=== PATIENT | male | born 1995 | race Caucasian/White ===

== ENCOUNTER 2024-02-16 10:47 | Emergency (ER) | payer OTHER, SELFPAY ==
[2024-02-16 11:05] VITALS: BP 138/74
--- NOTE | 2024-02-16 11:40 | ED.GENMED ---
History of Present Illness
General
Chief Complaint: Skin Surface Trauma
Time Seen by Provider: 02/16/24 11:19
History of Present Illness
History of Present Illness:
29-year-old male presents for evaluation of a minor laceration to left index fingertip sustained on a sawblade. Bleeding is controlled. Last tetanus unknown
Review of Systems
Review of Systems
Allergies reviewed?: Yes
All Other Systems: ROS reviewed and negative except as documented in HPI and ROS
Phy Exam
Physical Exam
Physical Exam:
GEN: Well appearing, NAD, WDWN
HEENT: Oral mucosa moist, no scleral icterus
Cardiac: Regular rate
Lung: No respiratory distress, no tachypnea
MSK: No gross deformity or injuries
Skin: Good color, no pallor or jaundice, no rashes. Minor avulsion laceration to the distalmost aspect of the left index finger with slight injury to the nail plate and nailbed, no bleeding
Neuro: AO x3, moves all extremities freely
Psych: Calm, cooperative
Course
Orders/Labs/Results
Orders:
Orders
02/16/24 11:40
Tetanus/Diphth/Acelpertussis [Adacel] 0.5 ml IM .ONCE ONE
02/16/24 11:44
Tetanus/Diphth/Acelpertussis [Adacel] 0.5 ml .ROUTE .STK-MED ONE
Vital Signs
Initial and Last Documented VS:
Initial Vital Signs
Temp Pulse Resp BP Pulse Ox
97.9 F 78 18 138/74 99
02/16/24 11:05 02/16/24 11:05 02/16/24 11:05 02/16/24 11:05 02/16/24 11:05
Last Documented Vital Signs
Temp Pulse Resp BP Pulse Ox
97.9 F 78 18 138/74 99
02/16/24 11:05 02/16/24 11:05 02/16/24 11:05 02/16/24 11:05 02/16/24 11:05
MDM/Problems Addressed
MDM/Problems Addressed:
Primary closure not indicated, wound cleansed and dressed
*Critical Care Note
Total Time (30-74mins, 75-104mins- exclusive of procedures): Not Applicable
ED Attending Note
-
Portions of this chart may have been created with voice recognition software.� Occasional wrong word or��sound alike� substitutions may have occurred due to the inherent limitations of voice recognition software.
Discharge Plan
Departure
Patient Disposition: Home (Routine Discharge)
Date of Disposition: 02/16/24
Time of Disposition: 11:40
Patient with high blood pressure during this ER visit?: No
Discharge Problem:
Laceration of left index finger
Instructions: Wound Care (DC)
Activity Restrictions/Additional Instructions:
Change dressing daily and wash with soap and water
Interventions
Interventions:
*General Assessment Last Done: 02/16/24 11:53
*Nursing Disposition Last Done: 02/16/24 11:53
ED-Skin Assessment Last Done: 02/16/24 11:28
Discharge Date and Time
Discharge Date/Time: 02/16/24 11:54
Print Language: TELUGU
[2024-02-16] MEDS: ADACEL 0.5 ML IM (11:47)
== END 2024-02-16 11:54 | disposition home or self-care (01) ==
LOC: EMR 10:47
PROVIDERS: EMERGENCY PHYSICIAN Emergency Medicine; FAMILY PHYSICIAN Family Medicine
DX: S61.311A Laceration without foreign body of left index finger with damage to nail, initial encounter (principal); W27.0XXA Contact with workbench tool, initial encounter; Z23 Encounter for immunization
CPT/HCPCS: 99282; 90471; 90715